=== PATIENT | male | born 1940 | race Caucasian/White ===

== ENCOUNTER → 2018-05-30 | Outpatient (CLI) | payer MEDICARE, OTHER ==
[~2018-05-30] MED LIST: CEFD300C37 PO; DOCU100C33 PO; DONE5TAB52 PO; FESO8TAB PO; METR500T PO; MULTIVITAMIN PO; PRED5TAB PO; SIMV10TA3 PO; TRAV5DRO EACHEYE; [UNRECOGNIZED DRUG - OTHER] PO
== END | disposition home or self-care (01) ==
LOC: RAD 14:51
PROVIDERS: ATTEND Nurse Practitioner Primary Care
DX: G31.9 Degenerative disease of nervous system, unspecified (principal)
CPT/HCPCS: 70450